=== PATIENT | male | born 1945 | race Caucasian/White ===

== ENCOUNTER 2022-08-17 09:09 | Emergency (ER) | payer MEDICARE ==
[2022-08-17] MEDS ORDERED: Sodium Chloride 0.9% 10 ML Syringe FLUSH PRN (09:19)
[2022-08-17 10:14] LABS: TROPONIN I HIGH SENSITIVITY 11.5 pg/mL (<=60.3)
[2022-08-17] MEDS ORDERED: Gadoteridol 279.3 MG/ML 20 ML SDV IV SCH ×2 (10:45→11:30)
[2022-08-17 11:52] VITALS: BP 114/74; PULSE 87
[2022-08-17] MEDS ORDERED: Enoxaparin 100 MG/1 ML Syringe SUBCUT ONE (12:04)
== END 2022-08-17 13:34 | disposition home or self-care (01) ==
LOC: JP.ED 09:09
DX: C71.0 Malignant neoplasm of cerebrum, except lobes and ventricles (principal); C78.00 Secondary malignant neoplasm of unspecified lung; C79.31 Secondary malignant neoplasm of brain; I82.621 Acute embolism and thrombosis of deep veins of right upper extremity; J01.90 Acute sinusitis, unspecified; I48.91 Unspecified atrial fibrillation; D61.818 Other pancytopenia; Z79.01 Long term (current) use of anticoagulants
CPT/HCPCS: 36415; 70450; 70450-26; 70553; 70553-26; 80048; 82947; 84484; 85025; 85610; 85730; 93005; 93010; 96372; 99284; A9579; J1650; J3490